=== PATIENT | male | born 1975 | race Caucasian/White ===

== ENCOUNTER 2019-01-28 00:01 | Emergency (ER) | payer BC ==
[~2019-01-28] VITALS: Ht 177.8 cm; Wt 80.3 kg
--- NOTE | 2019-01-28 00:37 | NUR ---
PT AMBULATORY. RECEIVED C/O #2 FINGER OF LEFT HAND PAIN AND SWELLING. INITIALLY WAS MINIMAL DUE TO HANG NAIL BUT SWOLLEN AND GOT WORSE AT 2030 YESTERDAY AFTER SLAMMING OBJECT ON TO THE SITE. DENIES LOSS OF SENSATION, ABLE TO DO ROM BUT WITH PAIN AT 8-10 MD AT BEDSIDE FOR HISTORY AND PHYSICAL
--- NOTE | 2019-01-28 01:10 | NUR ---
MD AT BEDSIDE FOR WOUND CLEANING AND MINOR I&D OF MINIMAL PUS AT #2DISTAL FINGER OF LEFT HAND. PT ABLE TO TOLERATE PROCEDURE. KEPT WARM DRY AND COMFORTABLE. PAIN MEDS ORDERED
[2019-01-28] MEDS ORDERED: LIDOCAINE HCL 1% 20 ML VIAL IJ ONE (01:15)
[2019-01-28] MEDS ORDERED: CEphaleXIN 500 MG CAPSULE PO ONE (01:30)
[2019-01-28] MEDS ORDERED: CEphaleXIN 500 MG CAPSULE ONE (01:40)
[2019-01-28] MEDS ORDERED: ACETAMINOPHEN 325 MG TABLET PO ONE (01:45)
[2019-01-28] MEDS ORDERED: IBUPROFEN 800 MG TABLET PO ONE (01:45)
[2019-01-28] MEDS ORDERED: ACETAMINOPHEN ES 500 MG TABLET ONE (01:46)
[2019-01-28] MEDS ORDERED: IBUPROFEN 800 MG TABLET ONE (01:47)
--- NOTE | 2019-01-28 02:15 | NUR ---
Patient discharged to home in stable conditon. Written and verbal after care instructions given. Patient verbalizes understanding of instructions.
[2019-01-28 02:34] VITALS: BP 130/89
== END 2019-01-28 02:25 | disposition home or self-care (01) ==
LOC: ER 00:10
DX: S67.191D Crushing injury of left index finger, subsequent encounter (principal); L03.012 Cellulitis of left finger; W23.0XXD Caught, crushed, jammed, or pinched between moving objects, subsequent encounter
CPT/HCPCS: 10060; 73140; 99284; J3490; A4663; A9150